=== PATIENT | male | born 1965 | race Caucasian/White ===

== ENCOUNTER 2017-11-14 22:13 | Emergency (ER) | payer OTHER ==
[~2017-11-14] VITALS: Ht 177.8 cm; Wt 59.0 kg
[2017-11-14] MEDS ORDERED: Albuterol/Ipratropium 3ml neb HHN ONE ×2 (22:30→23:15)
[2017-11-14 22:32] VITALS: BP 130/90
[2017-11-14] MEDS ORDERED: guaiFENesin 100mg/5ml Liq ud ORAL ONE (23:00)
[2017-11-14 23:28] LABS: HEMATOCRIT 45.8 % (42.0-52.0); HEMOGLOBIN 15.4 G/DL (14.2-18.0); MEAN CORPUSCULAR VOLUME 91 FL (80-99); PLATELET COUNT 302 K/UL (150-450); RED BLOOD COUNT 5.03 M/UL (4.70-6.10); RED CELL DISTRIBUTION WIDTH 13.4 % (11.6-14.8); WHITE BLOOD COUNT 11.9 K/UL (4.8-10.8)
[2017-11-14 23:38] LABS: ANION GAP 9 mmol/L (5-15); BLOOD UREA NITROGEN 17 mg/dL (7-18); CALCIUM 9.2 MG/DL (8.5-10.1); CARBON DIOXIDE 28 MMOL/L (21-32); CHLORIDE 100 MMOL/L (98-107); CREATININE 0.8 MG/DL (0.55-1.30); POTASSIUM 4.9 MMOL/L (3.5-5.1); SODIUM 137 MMOL/L (136-145)
[2017-11-14 23:44] LABS: ALANINE AMINOTRANSFERASE 26 U/L (12-78); ALKALINE PHOSPHATASE 82 U/L (46-116); ASPARTATE AMINO TRANSFERASE 39 U/L (15-37); BILIRUBIN,TOTAL 0.5 MG/DL (0.2-1.0)
[2017-11-15] MEDS ORDERED: ALBUTEROL SULF8.5 GM INH (00:25)
[2017-11-15] MEDS ORDERED: BACTRIM DS TAB1 EAC1 ORAL (00:25)
[2017-11-15] MEDS ORDERED: PREDNISONE20 MG ORAL (00:25)
[2017-11-15] MEDS ORDERED: Albuterol ud Inhalation HHN ONE (00:30)
--- NOTE | 2017-11-15 00:31 | Emergency Room Report ---
History of Present Illness General Chief Complaint: Dyspnea/Respdistress Source: Patient, EMS Present Illness HPI Patient is a 52-year-old male who presented after increased cough and difficulty breathing. Patient gradual onset of symptoms. The patient was noted to have prior history of COPD. Patient recently been on antibiotics. He noticed increased productive cough. Patient denied any fever. He does not use oxygen at home. Patient reports taking 3 different times inhalers. He does not recall name of antibiotics use. He is taking. The patient states is currently a smoker. He denies any leg pain or swelling. Allergies: Coded Allergies: No Known Allergies (Unverified , 11/14/17) Patient History Past Medical History: see triage record Reviewed Nursing Documentation: PMH: Agreed; PSxH: Agreed Nursing Documentation-PMH Past Medical History: No History, Except For Hx COPD: Yes Review of Systems All Other Systems: negative except mentioned in HPI Physical Exam Vital Signs Date Time Temp Pulse Resp B/P (MAP) Pulse Ox O2 Delivery O2 Flow Rate FiO2 11/14/17 22:09 98.9 119 17 138/128 94 Room Air 99.0 11/14/17 22:29 15.0 100 Sp02 EP Interpretation: reviewed, normal General Appearance: normal inspection, well appearing, no apparent distress, alert, GCS 15, thin, Chronically Ill Head: atraumatic ENT: normal ENT inspection, hearing grossly normal, normal voice Neck: normal inspection, full range of motion, supple, no bony tend Respiratory: normal inspection, no respiratory distress, no retraction, wheezing, expiration Cardiovascular #1: regular rate, rhythm, no edema Gastrointestinal: normal inspection, normal bowel sounds, non tender, soft, no guarding, no hernia Genitourinary: no CVA tenderness Musculoskeletal: normal inspection, back normal, normal range of motion Neurologic: normal inspection, alert, oriented x3, responsive, laboratory mechanical technician III-XII nml as tested, motor strength/tone normal, speech normal Psychiatric: normal inspection, judgement/insight normal, mood/affect normal Skin: normal inspection, normal color, no rash Medical Decision Making Diagnostic Impression: Primary Impression: COPD exacerbation ER Course Patient presented for shortness of breath. Differential included but was not limited to anemia, pneumonia, pneumothorax, myocardial infarction, pericardial effusion, congestive heart failure, acidosis. Because of complexity of patient' s case laboratory testing and imaging studies were ordered. The patient was given breathing treatments. He was given oral steroids. The patient noted to have improvement in his respiratory status per chest x-ray one view interpreted by me showed emphysematous changes of his lungs without evident infiltrate. The patient was given oral steroids. The patient was offered admission due to the some continued shortness of breath and he declined and stated he wanted to go home.Patient is advised smoking cessation. The time of discharge patient was awake alert and oriented. He was noted to have the oxygen saturation greater than 96%. The patient stated that he would return if he began having increased shortness of breath or other concerns.The patient is advised to follow up with primary care doctor in 1-2 days. Patient is advised to return if any worsening condition or if any changes in status that are concerning. This report is dictated with [employer] bookkeeping teacher software which may occasionally lead to discrepancies related to use of this software. Labs Test 11/14/17 22:20 White Blood Count 11.9 K/UL (4.8-10.8) Red Blood Count 5.03 M/UL (4.70-6.10) Hemoglobin 15.4 G/DL (14.2-18.0) Hematocrit 45.8 % (42.0-52.0) Mean Corpuscular Volume 91 FL (80-99) Mean Corpuscular Hemoglobin 30.6 PG (27.0-31.0) Mean Corpuscular Hemoglobin Concent 33.6 G/DL (32.0-36.0) Red Cell Distribution Width 13.4 % (11.6-14.8) Platelet Count 302 K/UL (150-450) Mean Platelet Volume 5.8 FL (6.5-10.1) Neutrophils (%) (Auto) % (45.0-75.0) Lymphocytes (%) (Auto) % (20.0-45.0) Monocytes (%) (Auto) % (1.0-10.0) Eosinophils (%) (Auto) % (0.0-3.0) Basophils (%) (Auto) % (0.0-2.0) Sodium Level 137 MMOL/L (136-145) Potassium Level 4.9 MMOL/L (3.5-5.1) Chloride Level 100 MMOL/L (98-107) Carbon Dioxide Level 28 MMOL/L (21-32) Anion Gap 9 mmol/L (5-15) Blood Urea Nitrogen 17 mg/dL (7-18) Creatinine 0.8 MG/DL (0.55-1.30) Estimat Glomerular Filtration Rate > 60 mL/min (>60) Glucose Level 121 MG/DL (74-106) Calcium Level 9.2 MG/DL (8.5-10.1) Total Bilirubin 0.5 MG/DL (0.2-1.0) Aspartate Amino Transf (AST/SGOT) 39 U/L (15-37) Alanine Aminotransferase (ALT/SGPT) 26 U/L (12-78) Alkaline Phosphatase 82 U/L (46-116) Total Protein 8.2 G/DL (6.4-8.2) Albumin 4.0 G/DL (3.4-5.0) Globulin 4.2 g/dL Albumin/Globulin Ratio 1.0 (1.0-2.7) Last Vital Signs Date Time Temp Pulse Resp B/P (MAP) Pulse Ox O2 Delivery O2 Flow Rate FiO2 11/15/17 00:01 112 24 100 Non-Rebreather 15.0 100 11/14/17 22:32 99.0 130/90 99.0 Status: improved Disposition: HOME, SELF-CARE Condition: Stable Scripts Prednisone* (PREDNISONE*) 20 Mg Tablet 40 MG ORAL DAILY, #10 TAB Prov: Nixon Rivera MD 11/15/17 Trimethoprim/Sulfamethoxazole 160/800* (BACTRIM DS TABLET*) 1 Each Tablet 1 TAB ORAL Q12H, #14 TAB 0 Refills Prov: Nixon Rivera MD 11/15/17 Albuterol Sulfate* (ALBUTEROL SULFATE MDI*) 8.5 Gm Hfa.aer.ad 2 PUFF INH Q6H, #1 EA 0 Refills Prov: Nixon Rivera MD 11/15/17 Patient Instructions: Chronic Obstructive Pulmonary Disease Exacerbation Nixon Rivera MD Nov 15, 2017 00:31
[2017-11-15 01:15] VITALS: BP 138/88
[2017-11-15] MEDS ORDERED: Albuterol/Ipratropium 3ml neb HHN ONE (01:15)
[2017-11-15 02:51] VITALS: BP 138/87
[2017-11-15 02:54] VITALS: BP 138/87
--- NOTE | 2017-11-15 11:35 | Diagnostic Imaging Report ---
Indication: Shortness of breath Technique: One view of the chest Comparison: none Findings: Lungs and pleural spaces are clear. The lungs are hyperinflated. The heart size is normal. Multiple old healed right rib fracture deformities noted Impression: Hyperinflation Evidence of old right rib trauma
== END 2017-11-15 02:55 | disposition home or self-care (01) ==
LOC: EDBD 22:13 → EMR 22:45
DX: J44.1 Chronic obstructive pulmonary disease with (acute) exacerbation (principal)
CPT/HCPCS: 36415; 71045; 80053; 84484; 85025; 94640; 96360; 99284; J7512; J7620